=== PATIENT | male | born 1975 | race Caucasian/White ===

== ENCOUNTER 2018-09-11 09:06 | Emergency (ER) | payer OTHER ==
[~2018-09-11] VITALS: Ht 175.3 cm; Wt 97.5 kg
[2018-09-11 09:07] VITALS: BP_SYST 133
--- NOTE | 2018-09-11 09:08 | NUR ---
BROUGHT BACK TO BED #8 AND TRIAGED. REPORT GIVEN TO CROW
--- NOTE | 2018-09-11 09:10 | NUR ---
Patient received awake and alert, ambulatory from main triage. Patient reports of left 2nd Toe pain x 1 week s/p crush injury by a ladder. Patient is able to walk w/ a steady gait. NO swelling or bruising noted. Patient reports that the pain is worse especially with movement. Patient reports of being unable to to see his doctor for this problem. BP noted.
--- NOTE | 2018-09-11 09:14 | NUR ---
Dr. Warren, SHRUTHI BATISTA, at the bedside for patient evaluation.
--- NOTE | 2018-09-11 09:22 | NUR ---
BEDSIDE X-RAY IN PROGRESS. KRISTEN HAMMER 09/11/2018
--- NOTE | 2018-09-11 09:35 | NUR ---
PATIENT HAS BEEN CLEARED FOR DC BY DR. CRENSHAW. XRAY NEGATIVE PER DR. CRENSHAW. PATIENT ADVISED TO FOLLOW-UP WITH HIS PMD, AND TO TAKE TYLENOL OR IBUPROFEN NEEDED FOR PAIN. PATIENT DC AWAKE AND ALERT, AMBULATES W/STEADY GAIT.
[2018-09-11 09:40] VITALS: BP_SYST 129
== END 2018-09-11 09:35 | disposition home or self-care (01) ==
LOC: SED 09:06
DX: S92.535A Nondisplaced fracture of distal phalanx of left lesser toe(s), initial encounter for closed fracture (principal); W11.XXXA Fall on and from ladder, initial encounter; Y93.89 Activity, other specified; Y92.89 Other specified places as the place of occurrence of the external cause; Y99.8 Other external cause status
CPT/HCPCS: 99283

== ENCOUNTER 2019-10-31 13:45 | Emergency (ER) | payer OTHER ==
[~2019-10-31] VITALS: Ht 175.3 cm; Wt 99.8 kg
[2019-10-31 13:49] VITALS: BP_SYST 134
[2019-10-31] MEDS ORDERED: ACETAMINOPHEN 500 MG TABLET PO ONE (14:15)
[2019-10-31] MEDS ORDERED: IBUPROFEN 800 MG TABLET PO ONE (15:15)
[2019-10-31] MEDS ORDERED: NACL 0.9% 2,000 ML IV ONE (15:15)
[2019-10-31 15:30] LABS: STREPTOCOCCUS A SCREEN (RAPID) NEGATIVE (NEGATIVE)
[2019-10-31 17:08] VITALS: BP_SYST 138
== END 2019-10-31 17:08 | disposition home or self-care (01) ==
LOC: SED 13:45
DX: J10.1 Influenza due to other identified influenza virus with other respiratory manifestations (principal); M79.18 Myalgia, other site; R50.9 Fever, unspecified
CPT/HCPCS: 86403; 86710; 87081; 99283; J7030; 36415